=== PATIENT | female | born 1980 | race Caucasian/White ===

== ENCOUNTER 2021-05-15 06:13 | Emergency (ER) | payer BC, SELFPAY ==
[~2021-05-15] VITALS: Ht 154.9 cm; Wt 63.5 kg
[2021-05-15 06:30] VITALS: BP_SYST 126
[2021-05-15] MEDS ORDERED: NACL 0.9% 1,000 ML IV ONE (07:00)
[2021-05-15] MEDS ORDERED: KETOROLAC TROMETHAMINE 30 MG VIAL IVP ONE (07:00)
[2021-05-15] MEDS ORDERED: ONDANSETRON HCL 4 MG/2 ML VIAL IVP ONE (07:00)
[2021-05-15 07:36] LABS: BASOPHILS % (AUTO) 0.6 % (0.0-2.0); HEMATOCRIT 39.4 % (36-48); HEMOGLOBIN 13.5 g/dL (12.0-16.0); LYMPHOCYTES # (AUTO) 0.5 K/uL (1.0-5.5); MEAN CORPUSCULAR HEMOGLOBIN 31 pg (27-31); MEAN CORPUSCULAR HGB CONC 34 % (32-36); MEAN CORPUSCULAR VOLUME 91 fL (79.0-98.0); MONOCYTES # (AUTO) 0.3 K/uL (0.0-1.0); MONOCYTES % (AUTO) 9.2 % (1.7-9.3); NEUTROPHILS # (AUTO) 2.6 K/uL (1.8-7.7); NEUTROPHILS % (AUTO) 76.2 % (40.0-70.0); PLATELET COUNT (AUTO) 122 K/uL (130-430); RED BLOOD CELL COUNT(AUTO) 4.35 MIL/uL (4.2-6.2); RED CELL DISTRIBUTION WIDTH 12.4 % (9.0-15.0); WHITE BLOOD COUNT (AUTO) 3.5 K/uL (4.8-10.8)
[2021-05-15 07:51] LABS: CALCIUM 7.7 mg/dL (8.4-11.0); CREATININE 0.77 mg/dL (0.55-1.30); POTASSIUM 3.7 mmol/L (3.5-5.1)
[2021-05-15 07:56] LABS: ALBUMIN 3.5 g/dL (3.4-4.8); TOTAL BILIRUBIN 0.2 mg/dL (0.0-1.0)
[2021-05-15] MEDS ORDERED: DOXY100T2 PO (08:46)
[2021-05-15] MEDS ORDERED: ONDA-8 TL (08:46)
[2021-05-15] MEDS ORDERED: MECL-160 PO (08:46)
[2021-05-15 09:27] VITALS: BP_SYST 131
[2021-05-15] MEDS ORDERED: IPRATROPIUM/ALBUTEROL SULFATE 3 ML AMPUL.NEB (DUONEB) ONE (17:27)
== END 2021-05-15 09:27 | disposition home or self-care (01) ==
LOC: SED 06:13
DX: U07.1 COVID-19 (principal); Z79.899 Other long term (current) drug therapy
CPT/HCPCS: 36415; 71045; 80053; 83690; 85025; 87426; 96361; 96374; 96375; 99284; J1885; J2405; J7030

== ENCOUNTER 2021-05-20 07:06 | Emergency (ER) | payer BC, SELFPAY ==
[~2021-05-20] VITALS: Ht 154.9 cm; Wt 63.5 kg
[2021-05-20 07:06] VITALS: BP_SYST 121
[~2021-05-20 07:06] MED LIST: DOXY100T2 PO; MECL-160 PO; ONDA-8 TL
--- NOTE | 2021-05-20 07:06 | NUR ---
BROUGHT TO OUTSIDE TENT AND TRIAGED. AWAITING ER BED.
--- NOTE | 2021-05-20 07:14 | NUR ---
PT STATES SHE TESTED +FOR COVID ON 05/14 AND AWOKE THIS AM, STARTED HAVING COUGHING SPELL. STATES O2 SATS WENT DOWN TO 85% AND CAME TO ER. NO RESP DISTRESS HERE, +COUGH. SPEAKING FULL SENTENCES. PT IS NOT VACCINATED. SPOUSE WITH PT OUTSIDE IN TRIAGE TENT.
--- NOTE | 2021-05-20 07:17 | NUR ---
DR NANCE OUTSIDE TO TENT FOR EVALUATION
[2021-05-20] MEDS ORDERED: ALBU8.5H8 INH (07:54)
[2021-05-20] MEDS ORDERED: PRED20TA PO (07:54)
[2021-05-20] MEDS ORDERED: predniSONE 20 MG TABLET PO ONE (08:00)
--- NOTE | 2021-05-20 08:01 | NUR ---
MEDICATED WITH PREDNISONE ORDERED, WILL OBSERVE PT FOR 15 MINUTES FOR S/S OF ALLERGIC REACTION
[2021-05-20 08:19] VITALS: BP_SYST 121
--- NOTE | 2021-05-20 08:20 | NUR ---
Patient given written and verbal discharge instructions and verbalizes understanding. ER MD discussed with patient the results and treatment provided. Patient in stable condition. ID arm band removed. Rx of ALBUTEROL, PRENDISONE given. Patient educated on pain management and to follow up with PMD. Pain Scale 0/10. Opportunity for questions provided and answered. Medication side effect fact sheet provided.
== END 2021-05-20 08:20 | disposition home or self-care (01) ==
LOC: SED 07:06
DX: U07.1 COVID-19 (principal); J12.82 Pneumonia due to coronavirus disease 2019; Z79.899 Other long term (current) drug therapy
CPT/HCPCS: 71045; 99283; J7512